=== PATIENT | male | born 1975 | race African-American/Black ===

== ENCOUNTER 2016-12-06 12:52 | Inpatient (IN) | payer OTHER ==
--- NOTE | ~2016-12-06 | CO ---
Unit #: [id number] #: [id number] Patient: PARAS MARTIN [id number] [place] [address] [id number] I MR#: [id number] NAME: PARAS MARTIN ROOM: [facility] Age: 41 Sex: M Admission Date: 12/06/2016 : 1975 Attending Physician: Sha Rodríguez M.D. Primary Care Physician: Primary Care Physician No Consultation Date: 12/10/2016 CONSULTATION REPORT SUBJECTIVE Paras is a 41-year-old who complains of left shoulder pain. He denies any recent injury. He does report that he has been told that he has a torn rotator cuff and will need surgery at some point. He had no complaints of shoulder pain at time of admission. He was admitted on 12/06/2016 to detox heroin. OBJECTIVE GENERAL: Alert, well nourished, in no apparent distress. VITAL SIGNS: Blood pressure 130/70, heart rate 80, respirations 16, temperature 98.6. EXTREMITIES: Left shoulder without gross deformity. Full range of motion without crepitance. No point tenderness identified anteriorly or posteriorly. ASSESSMENT Left shoulder pain. The patient is detoxing IV heroin. PLAN Tylenol p.r.n. Relafen 500 mg one p.o. b.i.d. He can follow up with PCP. Dictated by... Muna Muhammad P.A.-C. for Teofilo Vazquez/saumya TD: 12/11/2016 23:48 JOB #: [id number] CONSULTATION REPORT Page 1 of 1 X Muna Muhammad CONSULTATION REPORT
--- NOTE | ~2016-12-06 | HP ---
Unit #: [id number] #: [id number] Patient: PARAS MARTIN [id number] [place] [address] [id number] MR#: [id number] NAME: PARAS MARTIN ROOM: [facility] Age: 41 Sex: M Admission Date: 12/06/2016 : 1975 Attending Physician: Sha Rodríguez M.D. Admitting Physician: Sha Rodríguez M.D. Primary Care Physician: Primary Care Physician No HISTORY AND PHYSICAL HISTORY OF PRESENT ILLNESS Paras is a 41-year-old male admitted to [facility] because of his continued drug use. He shoots heroin and methamphetamine. He has had other admissions to this facility for the same. PAST MEDICAL HISTORY 1. Long history of illicit substance abuse to include IV heroin and methamphetamine. 2. Hepatitis C. 3. High blood pressure. PAST SURGICAL HISTORY Nothing reported. ALLERGIES No known drug allergies. SOCIAL HISTORY He denies cigarettes and alcohol. Admits to a long history of poly-illicit substance abuse to include IV drugs. FAMILY HISTORY Noncontributory. REVIEW OF SYSTEMS CONSTITUTIONAL: No fever or chills. HEENT: Denies any sore throat, ear pain or runny nose. CARDIOVASCULAR: Denies chest pain, irregular heart rhythm or palpitations. CHEST: Denies shortness of breath or cough. No hemoptysis. GASTROINTESTINAL: Denies nausea, vomiting, diarrhea or chronic constipation. ENDOCRINE: Denies history of increased thirst or urination. No recent significant weight loss or gain. GENITOURINARY: Denies dysuria, frequency, or hematuria. SKIN: Denies any rashes. HEMATOLOGIC: Denies history of increased bleeding or bruising. MUSCULOSKELETAL: Denies any hot, swollen joints. No generalized muscle pain. NEUROLOGIC: Denies problems with vision or speech. No frequent, severe headaches. No numbness, tingling or weakness in any extremities. Denies loss of bladder or bowel control. CURRENT MEDICATIONS Unit #: [id number] #: [id number] Patient: PARAS MARTIN Detox protocol. PHYSICAL EXAMINATION GENERAL: Alert, well-nourished, in no apparent distress. VITAL SIGNS: Blood pressure 110/70, heart rate 52, respirations 16, temperature 98.6. WEIGHT: 266. HEIGHT: 6 feet 3 inches. SKIN: Warm and dry without rash or lesion. HEENT: Normocephalic. TMs not viewed. Oral and nasal passages clear. Conjunctivae clear. PERRLA. EOMs intact. NECK: Supple without lymphadenopathy or thyromegaly. HEART: Regular rate and rhythm without murmur. LUNGS: Clear. ABDOMEN: Soft, nontender. : Not done. EXTREMITIES: No evidence of cyanosis, clubbing or edema. Moves all without focal deficit. NEUROLOGICAL: Grossly within normal limits. Cranial Nerves: II: Visual becerra are intact. III, IV AND : Extraocular movements are intact. Pupils are equal, round and reactive to light. V: Facial sensation is grossly normal. VII: Facial movements and expression are normal. VIII: Auditory acuity grossly intact. IX, X: Uvula is midline. Phonation is normal. XI: Patient shrugs shoulders and turns head normally. XII: Tongue protrudes in the midline. Sensory and Motor Function: Sensory and motor sensation is grossly normal. Motor: moves all extremities well. Coordination: Gait is normal. Deep Tendon Reflexes: Intact. IMPRESSION Psychiatric admission. RECOMMENDATIONS PSYCHIATRIC: Per psychiatrist. MEDICAL: See no contraindications to participate in facility's activities. MEDICAL PROGNOSIS Good. MEDICAL CONDITION Stable. Dictated by... Muna Muhammad PHinaARudy. for Teofilo Vazquez/elmer TD: 12/07/2016 16:10 JOB #: [id number] Unit #: [id number] #: [id number] Patient: PARAS MARTIN HISTORY AND PHYSICAL Page 1 of 1 X Muna Muhammad X HISTORY AND PHYSICAL
--- NOTE | ~2016-12-06 | DS ---
Unit #: [id number] #: [id number] [facility]: [facility] [id number] [facility] [place] [address] [id number] I MR#: [id number] NAME: MEGAN MARTIN ROOM: [facility] Age: 41 Sex: M Admission Date: 12/06/2016 : 1975 Discharge Date: Attending Physician: Sha Rodríguez M.D. Primary Care Physician: Primary Care Physician No DISCHARGE SUMMARY IDENTIFYING DATA Mr. Martin is a 41-year-old male who is a resident of [place], [place] and was self-referred to the hospital on a voluntary basis with a chief complaint of "I just have a lot going on with my addiction." DISCHARGE DIAGNOSES Psychiatric: Major depressive disorder, recurrent, moderate, without psychotic features; opioid dependence, moderate and acute withdrawals; alcohol dependence, moderate and acute withdrawals; benzodiazepine dependence, moderate and acute withdrawals; methamphetamine dependence, moderate. Medical: Hypertension, hepatitis C. Stressors: Moderate psychosocial stressors. HISTORY OF PRESENT ILLNESS Please see initial psychiatric evaluation for details. PAST PSYCHIATRIC HISTORY Please see initial psychiatric evaluation for details. PAST MEDICAL HISTORY Please see initial psychiatric evaluation for details. HOSPITAL COURSE The patient was admitted to the adult chemical dependency unit at [facility] and was oriented to the hospital environment. Routine p.r.n. medications were initiated, and he was started back on his home medications and medications were adjusted and he was closely monitored. He was taking the medications regularly and was tolerating them fairly well and was able to come out of the detox without any complications, and as such, it was decided that he will be discharged home and will continue treatment on an outpatient basis. DISCHARGE MEDICATIONS None. DISCHARGE CONDITION Stable. PROGNOSIS Fair. Unit #: [id number] #: [id number] Patient: MEGAN MARTIN Dictated by... Teofilo Aranda/zaidal TD: 12/12/2016 06:38 JOB #: [id number] DISCHARGE SUMMARY Page 1 of 1 X Sha Rodríguez MD X DISCHARGE SUMMARY
--- NOTE | ~2016-12-06 | PN ---
Unit #: [id number] #: [id number] Patient: MEGAN MARTIN [id number] [facility] [address] [place] [address] [id number] I MR#: [id number] NAME: MEGAN MARTIN ROOM: [facility] Age: 41 Sex: M Admission Date: 12/06/2016 : 1975 Attending Physician: Sha Rodríguez M.D. Admitting Physician: Sha Rodríguez M.D. Primary Care Physician: Primary Care Physician Stephanie QUINTANA NOTES DATE OF SERVICE 12/09/2016 DISCUSSION Ms. Martin is a 41-year-old male with substance abuse and mood disorder who was seen today. Chart was reviewed and case was discussed with the staff. He was seen to be anxious, withdrawn, depressed, and staff reported that he has been voicing feelings of hopelessness and uncomfortable and being in that room, and therefore (1) __ transferred to a camera-monitored room. Meanwhile, the patient has been making statements that he feels that he needs some (2) __ and therefore he does not feel good. He has been, however, compliant with the treatment recommendation and has been taking the medications and tolerating them fairly well with no reported side effects. MENTAL STATUS EXAMINATION Middle-aged male who is casually dressed with fair personal hygiene, appears to be in no acute distress or discomfort. He was awake and alert on interaction with intact orientation. His mood is anxious with congruent affect. Speech is slow and goal-directed. He denies any suicidal or homicidal ideations and also denies any auditory or visual hallucinations. His insight and judgment remain slightly impaired. TREATMENT PLAN 1. We will continue him on his current medications and treatment protocol. We will monitor his response and make further adjustments as needed. 2. We will continue to follow up. Dictated by... Sha Rodríguez M.D. IAA/bzg TD: 12/10/2016 12:51 JOB #: [id number] Unit #: [id number] #: [id number] Patient: MEGAN MARTIN PROGRESS NOTES Page 1 of 1 X Marcos,Sha FRAGA X PROGRESS NOTE
--- NOTE | ~2016-12-06 | PN ---
Unit #: [id number] #: [id number] Patient: MEGAN BOYCE [id number] [facility] [address] [place] [address] [id number] I MR#: [id number] NAME: MEGAN BOYCE ROOM: [facility] Age: 41 Sex: M Admission Date: 12/06/2016 : 1975 Attending Physician: Sha Rodríguez M.D. Admitting Physician: Teofilo Aranda PROGRESS NOTES DATE OF SERVICE: 12/07/2016 SUBJECTIVE Mr. Boyce is a 41-year-old male, who was seen today and chart was reviewed, and case was discussed with the staff. He has been anxious, withdrawn, seclusive to himself and does not appear to be in any distress or discomfort he has been taking the medications and tolerating them fairly well with no reported side effects. MENTAL STATUS EXAMINATION Middle-aged male, who was casually dressed with fair personal hygiene, appears to be in no acute distress or discomfort. He was awake and alert with intact orientation. His mood was anxious and depressed with a congruent affect. His speech was slow and restricted in content. He reports some suicidal ideation, but denies any homicidal ideation. His insight and judgment remain slightly impaired. TREATMENT PLAN 1. We will continue him on his current medications and treatment protocol. We will monitor his response to the medications and make further adjustments as needed. 2. We will continue to follow up. Dictated by... Teofilo Aranda/saumya TD: 12/08/2016 20:08 JOB #: [id number] [facility]ATIA PROGRESS NOTES Page 1 of 1 X Sha Rodríguez MD PROGRESS NOTE
--- NOTE | ~2016-12-06 | PN ---
Unit #: [id number] #: [id number] Patient: MEGAN MARTIN [id number] [facility] [address] [place] [address] [id number] I MR#: [id number] NAME: MEGAN MARTIN ROOM: [facility] Age: 41 Sex: M Admission Date: 12/06/2016 : 1975 Attending Physician: Sha Rodríguez M.D. Admitting Physician: Sha Rodríguez M.D. Primary Care Physician: Primary Care Physician Stephanie MONTALVO PROGRESS NOTES DATE 12/10/2016 DISCUSSION Mr. Martin is a 41-year-old, male who was seen today and chart was reviewed and case was discussed with the staff. He has been anxious, withdrawn rather seclusive to himself. Meanwhile, he has been cooperative with the treatment recommendations. He has been taking the medication and tolerating them fairly well with no reported side effects. MENTAL STATUS EXAM Middle-aged male who was casually dressed with fair personal hygiene, appears to be in no acute distress or discomfort. He was awake and alert on interaction with intact orientation. His mood was anxious with congruent affect. He denies any suicidal or homicidal ideation. Also, denies any auditory or visual hallucinations. His insight and judgement remains slightly impaired. TREATMENT PLAN 1. We will continue him on his current medications and treatment protocol. We will monitor his response to the medication and make further adjustments as needed. 2. We will continue to follow up. Dictated by... Teofilo Aranda/papito TD: 12/11/2016 00:08 JOB #: [id number] Unit #: [id number] #: [id number] Patient: MEGAN MARTIN PROGRESS NOTES Page 1 of 1 X Sha Rodríguez MD PROGRESS NOTE
--- NOTE | ~2016-12-06 | PN ---
Unit #: [id number] #: [id number] Patient: MEGAN BOYCE [id number] [facility] [address] [place] [address] [id number] I MR#: [id number] NAME: MEGAN BOYCE ROOM: [facility] Age: 41 Sex: M Admission Date: 12/06/2016 : 1975 Attending Physician: Sha Rodríguez M.D. Admitting Physician: Teofilo Aranda PROGRESS NOTES DATE OF SERVICE: 12/08/2016 SUBJECTIVE Mr. Boyce is a 41-year-old male, who was seen today and chart was reviewed, and case was discussed with the staff. He has been anxious, withdrawn and he was able to carry on better conversation than yesterday, he still appears to be very seclusive to himself and has been exhibiting some distress or discomfort . He has been taking the medications and tolerating them fairly well. MENTAL STATUS EXAMINATION Middle-aged male, who was casually dressed with fair personal hygiene, appears to be in no acute distress or discomfort. He was awake and alert on interaction with intact orientation. His mood was anxious and depressed with congruent affect. His speech was slow and goal directed. He reports having suicidal ideations, but denies any homicidal ideations. His insight and judgment remain slightly impaired. TREATMENT PLAN 1. We will continue on his current medications and treatment protocol. We will monitor his response to the medications and make further adjustments as needed. 2. We will continue to follow up. Dictated by... Teofilo Aranda/saumya TD: 12/08/2016 14:02 JOB #: [id number] Unit #: [id number] #: [id number] Patient: MEGAN BOYCE PROGRESS NOTES Page 1 of 1 X Sha Rodríguez MD PROGRESS NOTE
--- NOTE | ~2016-12-06 | PA ---
Unit #: [id number] #: [id number] Patient: MEGAN BOYCE [id number] [facility] [address] [place] [address] [id number] I MR#: [id number] NAME: MEGAN BOYCE ROOM: 84 Age: 41 Sex: M Admission Date: 12/06/2016 : 1975 Date of Assessment: Attending Physician: Sha Rodríguez M.D. Admitting Physician: Sha Rodríguez M.D. PSYCHIATRIC ASSESSMENT IDENTIFYING DATA Mr. Boyce is a 41-year-old , male, who is a resident of [place], [place], and was self-referred to the hospital on a voluntary basis. CHIEF COMPLAINT "I just have a lot going on with my addiction". HISTORY OF PRESENT ILLNESS Mr. Boyce is a 41-year-old -[place] male with history of substance abuse and mood disorder, who was self-referred to the hospital stating "I have lost at least 30 pounds in last month, I just up a lot going on with my addiction, I cannot shake the meth, I cannot shake the Xanax, and pain pills." He reports that he is detoxing from meth, Xanax, and heroin and his 's pain pills and reports that he relapsed a month ago after being sober for 8 months and now reports currently having suicidal ideation, plan to overdose on heroin. He does report increasing depression, anxiety, irritability, restlessness, feelings of hopelessness and helplessness, seen to be danger to self and others as such, recommendation for inpatient level of care for safety and stabilization was made, and the patient was transferred to us. SUBSTANCE ABUSE HISTORY The patient reports history of experimentation abuse of alcohol, opioids, methamphetamine, and benzodiazepines, and has been mixing all of those on regular basis, stating that he has been drinking 12 beers on daily basis and he has been using four Xanax pills 2 mg each day with a total of 8 mg of Xanax a day and has been using heroin and methamphetamine on a regular basis as well. PAST PSYCHIATRIC HISTORY The patient [facility] a [facility], and review of the medical records indicate that currently he is not active in any treatment program, is not seeing a psychiatrist, and is not taking any psychotropic medications. PAST MEDICAL HISTORY 1. Hypertension. 2. Hepatitis C. ALLERGIES Unit #: [id number] #: [id number] Patient: MEGAN BOYCE No known medication allergies. 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 MENTAL STATUS EXAMINATION Middle-aged, -[place]ym[place] male, who was casually dressed with fair personal hygiene, appears to be in no acute distress or discomfort. He was awake and alert on interaction with intact orientation to time, place, and person. His mood was anxious and depressed with a congruent affect. His speech was slow and restricted in content. His thought processes were disorganized with some looseness of associations and flight of ideas and suicidal ideations. His insight and judgment remain significantly impaired. DIAGNOSTIC IMPRESSION Psychiatric: Major depressive disorder, recurrent, moderate, without psychotic features; opioid dependence, moderate and acute withdrawals. Alcohol dependence, moderate and acute withdrawals; benzodiazepine dependence, moderate and acute withdrawals; methamphetamine dependence, moderate. Medical: Hypertension. Hepatitis C. Stressors: Moderate psychosocial stressors. TREATMENT PLAN 1. The patient has presented with history of substance abuse and mood disorder, and has been decompensating and will need inpatient hospitalization for detoxification, safety, and stabilization. We will start him back on his home medications. We will also start him on the opioid and alcohol detox protocol. 2. Supportive therapy was provided to the patient. 3. Safe, structured, and nourishing environment will be provided. ESTIMATED LENGTH OF STAY 5 to 7 days. ABILITY TO HELP SELF Limited. WILLINGNESS TO HELP SELF The patient appears to be willing to help self. STRENGTHS 1. Communicative. 2. Cooperative. PROBLEMS 1. Chronic dysphoric symptoms. 2. Chronic chemical dependency. 3. Poor social support system. DISCHARGE CRITERIA This will be contingent upon the patient's ability to go through detox without having any significant withdrawal symptoms as well as his ability to stay safe to himself, particularly after discharge from the hospital. Unit #: [id number] #: [id number] Patient: MEGAN BOYCE Dictated by... Sha Rodríguez M.D. COLTON/saumya TD: 12/07/2016 14:45 JOB #: [id number] PSYCHIATRIC ASSESSMENT Page 1 of 1 X Sha Rodríguez MD PSYCHIATRIC ASSESSMENT
--- NOTE | ~2016-12-06 | CO ---
Unit #: [id number] #: [id number] Patient: MEGAN MARTIN [id number] [facility] [address] [place] [address] [id number] I MR#: [id number] NAME: MEGAN MARTIN ROOM: [facility] Age: 41 Sex: M Admission Date: 12/06/2016 : 1975 Attending Physician: Sha Rodríguez M.D. Primary Care Physician: Primary Care Physician No Consultation Date: 12/09/2016 CONSULTATION REPORT Ordering provider is Dr. Rodríguez. REASON FOR CONSULT Abscess on right forearm. SUBJECTIVE The patient reports that. He was shooting up heroin in his right arm and now has an area of pain and swelling. He denies any drainage from the area. He denies any systemic symptoms. He reports that his hand is mildly swollen as above. OBJECTIVE The patient has approximately 2 cm area of induration on the lateral side of his right forearm. It is mildly tender to palpation and mildly warm to touch. Of note, his right hand also has some swelling. He is currently afebrile. The remainder of his examination was within normal limits. Pulses were 2+ bilaterally. IMPRESSION Cellulitis of the right forearm. PLAN Plan is to start the patient on clindamycin q.i.d. and continue to monitor. Dictated by... Leah Beal A.P.R.N. for Teofilo Vazquez/saumya TD: 12/10/2016 16:31 JOB #: [id number] CONSULTATION REPORT Page 1 of 1 X LEAH BEAL APRN CONSULTATION REPORT
--- NOTE | ~2016-12-06 | PN ---
Unit #: [id number] #: [id number] Patient: MEGAN MARTIN [id number] [facility] [address] [place] [address] [id number] MR#: [id number] NAME: MEGAN MARTIN ROOM: [facility] Age: 41 Sex: M Admission Date: 12/06/2016 : 1975 Attending Physician: Sha Rodríguez M.D. Admitting Physician: Sha Rodríguez M.D. Primary Care Physician: Primary Care Physician Stephanie MONTALVO PROGRESS NOTES DATE 12/11/2016 DISCUSSION Mr. Martin is a 41-year-old, male who was seen today and chart was reviewed and case was discussed with the staff. He has been anxious, withdrawn but reports improvement in his depressive symptoms. Meanwhile, he has been taking medications and tolerating them fairly well with no reported side effects. MENTAL STATUS EXAM Middle-aged male who was casually dressed with fair personal hygiene, appears to be in no acute distress or discomfort. He was awake and alert on interaction with intact orientation. His mood was anxious with congruent affect. He denies any suicidal or homicidal ideation. Also, denies any auditory or visual hallucinations. His insight and judgement remains slightly impaired. TREATMENT PLAN 1. We will continue him on his current medications and treatment protocol. We will monitor his response and make further adjustments as needed. 2. We will continue to follow up. Dictated by... Teofilo Aranda/papito TD: 12/12/2016 01:41 JOB #: [id number] Unit #: [id number] #: [id number] Patient: MEGAN MARTIN PROGRESS NOTES Page 1 of 1 X Sha Rodríguez MD PROGRESS NOTE
[2016-12-10 12:32] LABS: URINE APPEARANCE CLEAR; URINE BILIRUBIN NEG (NEG); URINE BLOOD NEG (NEG); URINE COLOR DK YELLOW; URINE GLUCOSE NEG (NEG); URINE KETONE NEG (NEG); URINE LEUKOCYTE ESTERASE NEG (NEG); URINE NITRATE NEG (NEG); URINE PH 7.5 (5-8); URINE PROTEIN NEG (NEG); URINE SPECIFIC GRAVITY 1.014 (1.003-1.035)
[2016-12-10 13:02] LABS: AMPHETAMINE NEG (NEG); BARBITURATES NEG (NEG); BENZODIAZEPINES NEG (NEG); COCAINE NEG (NEG); MARIJUANA NEG (NEG); OPIATES NEG (NEG); TRICYCLIC ANTIDEPRESSANTS NEG (NEG); U METHADONE NEG (NEG)
== END 2016-12-13 10:43 | disposition home or self-care (01) | DRG 885 ==
LOC: P1E 12:52
PROVIDERS: Psychiatry & Neurology Psychiatry
PROC: HZ2ZZZZ Detoxification Services for Substance Abuse Treatment (ICD-10-PCS; principal; 2016-12-06)
DX: F33.1 Major depressive disorder, recurrent, moderate (principal); I10 Essential (primary) hypertension; F11.23 Opioid dependence with withdrawal; F10.239 Alcohol dependence with withdrawal, unspecified; F13.239 Sedative, hypnotic or anxiolytic dependence with withdrawal, unspecified; F15.23 Other stimulant dependence with withdrawal; B19.20 Unspecified viral hepatitis C without hepatic coma
CPT/HCPCS: 80307; 81003; J2550